=== PATIENT | male | born 1980 | race African-American/Black ===

== ENCOUNTER → 2022-05-26 07:59 | Outpatient (CLI) | payer OTHER, SELFPAY ==
--- NOTE | 2022-05-26 | DI.MRI.S_ITS ---
PROCEDURE: MR ANKLE LT WO CON INDICATIONS: Pain in left ankle TECHNIQUE: Noncontrast sagittal T1 spin echo and T2 fast spin echo with fat saturation, axial proton density fast spin echo and T2 fast spin echo with fat saturation, coronal T1 spin echo and T2 fast spin echo with fat saturation through the ankle/hindfoot. COMPARISON: None. FINDINGS: Image quality: Excellent. Bones and joints: No bone marrow contusions or fractures. No hindfoot coalitions. No osteochondral injuries of the talar dome. No pathologic joint effusions. Medial structures: The posterior tibialis is thickened at the level of distal talus and talonavicular joint with small amount of fluid distending tendon sheath. The flexor digitorum longus, and flexor hallucis longus tendons are intact. The posterior tibial neurovascular bundle appears normal within the tarsal tunnel, without extrinsic mass effect. The deltoid ligament and spring ligament is thickened. Lateral structures: The anterior talofibular calcaneofibular, and posterior talofibular ligaments appear thickened with subtle intrasubstance T2 hyperintense signal. More superiorly, the anterior and posterior tibiofibular ligaments also appears thickened with intrasubstance T2 hyperintense signal. The tibiofibular syndesmosis is normal in width at 2 mm or less. The peroneus brevis tendon is intact. The peroneus longus tendon is thickened with intrasubstance T2 hyperintense signal at the level of mid to distal calcaneus and calcaneocuboid joint. Adjacent bony peroneal tubercle and retrotrochlear prominence are normal in size. The sinus tarsi demonstrates normal fatty signal, without edema, fibrosis, or cyst formation. Visualized sinus tarsi components (cervical ligament, interosseous talocalcaneal ligament, roots of the inferior extensor retinaculum) appear normal. The calcaneonavicular and calcaneocuboid components of the bifurcate ligament appear intact. The dorsal calcaneocuboid ligament appears intact. Anterior structures: The tibialis anterior, extensor hallucis longus, and extensor digitorum longus tendons appear intact. The dorsal talonavicular ligament appears intact. Posterior and plantar structures: Achilles tendon is mildly thickened at its insertion on posterior calcaneus. Medial and lateral bands of the plantar fascia are thickened at their insertions on plantar calcaneus with surrounding edema. No abductor digiti quinti muscle atrophy to suggest Juan neuropathy. IMPRESSION: 1. No marrow edema. No fracture or dislocation. No osteochondral injuries of talar dome. 2. Tendinosis and low-grade tenosynovitis involving posterior tibialis tendon at the level of talus and talonavicular joint. Low-grade medial ankle ligament sprain. 3. Tendinosis and low-grade intrasubstance partial-thickness tear involving peroneus longus tendon at the level of calcaneus and calcaneocuboid joint. Low-grade sprain/partial-thickness tear involving lateral ankle ligaments. 4. Distal Achilles tendinosis at its posterior calcaneal insertion. No Achilles tendon rupture. 5. [id number] plantar fasciitis at its calcaneal insertion. Dictated by: Johnnie Adair M.D. on 05/26/2022 at 10:04 Approved by: Johnnie Adair M.D. on 05/26/2022 at 10:13
== END ==
PROVIDERS: Referring Provider Podiatrist; Visit Provider Podiatrist
DX: S93.492A Sprain of other ligament of left ankle, initial encounter (principal); M65.872 Other synovitis and tenosynovitis, left ankle and foot; M72.2 Plantar fascial fibromatosis; M79.672 Pain in left foot; R26.2 Difficulty in walking, not elsewhere classified
CPT/HCPCS: 73721